=== PATIENT | female | born 1980 | race Hispanic/Latino ===

== ENCOUNTER 2022-11-13 19:41 | Emergency (ER) | payer SELFPAY ==
[2022-11-13] MEDS ORDERED: HYDROCODONE/APAP 10/325 TAB ONE (20:30)
[2022-11-13] MEDS ORDERED: IBUPROFEN 400 MG TAB ONE (20:48)
[2022-11-13 22:28] VITALS: BP 133/89; TEMP 97.5; O2SAT 100
--- NOTE | 2022-11-28 15:18 | ER ---
Nurse's Notes [facility] Name: Carol Edwards Age: 42 yrs Sex: Female : 1980 Arrival Date: 11/13/2022 Time: 19:44 Bed 11 Private MD: Diagnosis: Toxic effect of contact with other jellyfish, accidental (unintentional), initial encounter Presentation: 11/13 20:18 Chief complaint: Patient states: jellyfish sting to left arm, pt reports numbness of eh3 arm. Ebola Screen: No symptoms or risks identified at this time. Initial Sepsis Screen: Does the patient meet any 2 criteria? No. Patient's initial sepsis screen is negative. Does the patient have a suspected source of infection? No. Patient's initial sepsis screen is negative. Risk Assessment: Do you want to hurt yourself or someone else? Patient reports no desire to harm self or others. Onset of symptoms was November 13, 2022. 20:18 Method Of Arrival: Ambulatory eh3 20:18 Acuity: MAX 3 eh3 20:18 Coronavirus screen: Vaccine status: Patient reports being unvaccinated. eh3 Triage Assessment: 20:18 General: Appears in no apparent distress. uncomfortable, Behavior is cooperative, eh3 appropriate for age. Pain: Complains of pain in left arm. 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 - Social history:: Smoking status: unknown. - Family history:: not pertinent. Screenin:18 [facility] ED Fall Risk Assessment (Adult) Score/Fall Risk Level 0 - 2 = Low Risk. Abuse eh3 screen: Denies threats or abuse. Denies injuries from another. Nutritional screening: No deficits noted. Tuberculosis screening: No symptoms or risk factors identified. Assessment: 20:20 Reassessment: No changes from previously documented assessment. See triage assessment. eh3 Neuro: Level of Consciousness is awake, alert, obeys commands, Oriented to person, place, time, situation. Cardiovascular: Capillary refill < 3 seconds Patient's skin is warm and dry. Respiratory: Airway is patent Respiratory effort is even, unlabored, Respiratory pattern is regular, symmetrical. GI: Abdomen is round non-distended. : No signs and/or symptoms were reported regarding the genitourinary system. EENT: No signs and/or symptoms were reported regarding the EENT system. Derm: red raised skin on medial aspect of left upper arm. Musculoskeletal: Range of motion: intact in all extremities. Vital Signs: 20:28 BP 133 / 89; Pulse 77; Resp 18; Temp 97.5(TE); Pulse Ox 100% on R/A; Weight 101.6 kg; oe Height 5 ft. 1 in. ; 20:28 Body Mass Index 42.32 (101.60 kg, 154.94 cm) oe ED Course: 19:44 Patient arrived in ED. mr 20:14 Rigoberto Mar MD is Attending Physician. david 20:18 Leonor Arndt, RN is Primary Nurse. eh3 20:18 Arm band placed on. eh3 20:18 Patient has correct armband on for positive identification. Bed in low position. Call eh3 light in reach. Door closed. Noise minimized. Warm blanket given. 20:19 Triage completed. eh3 21:50 No provider procedures requiring assistance completed. Patient did not have IV access eh3 during this emergency room visit. Administered Medications: 20:42 Not Given (Patient Refused): [place] PO 10 mg-325 mg 1 tabs PO once eh3 20:47 Drug: Ibuprofen PO 800 mg Route: PO; eh3 21:50 Follow up: Response: Pain is decreased eh3 Medication: 21:50 VIS not applicable for this client. eh3 Outcome: 21:27 Discharge ordered by . [facility] 21:50 Discharged to home ambulatory, with family. eh3 21:50 Condition: stable 21:50 Discharge instructions given to patient, Instructed on discharge instructions, follow up and referral plans. medication usage, Demonstrated understanding of instructions, follow-up care, medications, Prescriptions given X 1. 21:50 Patient left the ED. eh3 Signatures: Rigoberto Mar MD MD cha Rivera, Mary Guy Jacomelando Leonor Arndt, RN RN eh3 Corrections: (The following items were deleted from the chart) 20:35 20:28 BP 133 / 89; Pulse 77bpm; Resp 18bpm; Pulse Ox 100% RA; Temp 97.5F Temporal; oe oe
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
== END 2022-11-13 21:50 | disposition home or self-care (01) ==
LOC: ER 19:41
DX: R21 Rash and other nonspecific skin eruption (principal); W56.89XA Other contact with other nonvenomous marine animals, initial encounter
CPT/HCPCS: 99283